=== PATIENT | female | born 1995 | race Caucasian/White ===

== ENCOUNTER 2017-02-20 00:08 | Emergency (ER) | payer OTHER ==
[~2017-02-20] VITALS: Ht 149.9 cm; Wt 95.2 kg
[~2017-02-20 00:08] MED LIST: BIRTH CONTROL PO; COLACE100 MG PO; MOTRIN800 MG PO; NOHOMEMEDS; ZOFRAN4 MG PO
[2017-02-20 00:11] VITALS: BP 113/81
[2017-02-20] MEDS ORDERED: FLEXERIL10 MG PO (01:25)
[2017-02-20] MEDS ORDERED: NAPROSYN500 MG PO (01:25)
== END 2017-02-20 01:45 | disposition home or self-care (01) ==
LOC: EME 00:08
DX: S39.012A Strain of muscle, fascia and tendon of lower back, initial encounter (principal); M62.830 Muscle spasm of back; V49.40XA Driver injured in collision with unspecified motor vehicles in traffic accident, initial encounter
CPT/HCPCS: 99281; 99283

== ENCOUNTER 2017-07-23 00:05 | Emergency (ER) | payer OTHER ==
[~2017-07-23] VITALS: Ht 149.9 cm; Wt 97.4 kg
[~2017-07-23 00:05] MED LIST changes: +FLEXERIL10 MG PO; +NAPROSYN500 MG PO
[2017-07-23 01:59] VITALS: BP 98/63
[2017-07-23] MEDS ORDERED: UNABLE TO OBTAIN (01:59)
== END 2017-07-23 02:01 | disposition home or self-care (01) ==
LOC: EME 00:05
PROC: 2W3CX1Z Immobilization of Right Lower Arm using Splint (ICD-10-PCS; principal; 2017-07-23)
DX: S62.306A Unspecified fracture of fifth metacarpal bone, right hand, initial encounter for closed fracture (principal); W22.09XA Striking against other stationary object, initial encounter; F17.200 Nicotine dependence, unspecified, uncomplicated
CPT/HCPCS: 73130; 99281; 99283

== ENCOUNTER 2017-12-28 22:06 | Emergency (ER) | payer OTHER ==
[~2017-12-28] VITALS: Ht 149.9 cm; Wt 100.9 kg
[~2017-12-28 22:06] MED LIST changes: +UNABLE TO OBTAIN
[2017-12-28 22:41] LABS: HEMATOCRIT 35.1 % (36.0-46.0); MCH 30.5 PG (29.0-34.0); MCHC 34.2 G/DL (30.0-36.0); MCV 89.3 FL (83-99); PLATELET COUNT 230 K/uL (156-360); RBC DIS.WIDTH-CV 12.7 % (11.8-14.6); RBC DIS.WIDTH-SD 41.5 % (39-53); RED BLOOD COUNT 3.93 M/uL (3.80-5.20); WHITE BLOOD COUNT 10.5 K/uL (4.1-10.2)
[2017-12-28 22:52] LABS: ALBUMIN 4.4 g/dL (3.2-4.8); CHLORIDE 106 mEq/L (99-109); POTASSIUM 3.7 mEq/L (3.7-5.4); SODIUM 139 mEq/L (136-147)
[2017-12-28 22:55] LABS: GLUCOSE 84 mg/dL (70-99); TOTAL PROTEIN 7.3 g/dL (6.4-8.3)
[2017-12-28 22:57] LABS: TOTAL BILIRUBIN 0.3 mg/dL (0.0-1.0)
[2017-12-28 22:58] LABS: ALKALINE PHOSPHATASE 49 IU/L (3-129); CREATININE 0.7 mg/dL (0.6-1.3); GFR ESTIMATE (CALCULATED) > 59 mL/min/
[2017-12-28 22:59] LABS: UREA NITROGEN (BUN) 8 mg/dL (9-23)
[2017-12-28 23:00] LABS: AST (GOT) 31 IU/L (2-34)
[2017-12-28 23:01] LABS: ALT (GPT) 36 IU/L (3-49)
[2017-12-28 23:23] LABS: QUANTITATIVE HCG 130190.3 MIU/ML
[2017-12-29 02:55] LABS: APPEARANCE CLOUDY ((CLEAR)); BILIRUBIN NEGATIVE; BLOOD NEGATIVE; COLOR YELLOW ((YELLOW)); GLUCOSE (STRIP) NEGATIVE; KETONES NEGATIVE; LEUKOCYTES TRACE; NITRITE NEGATIVE; PROTEIN (STRIP) NEGATIVE; SPECIFIC GRAVITY 1.025 (1.000-1.030); UROBILINOGEN 0.2 MG/DL (0.2-1.0)
[2017-12-29 02:59] LABS: BACTERIA RARE /HPF; EPITHELIAL CELLS 3+ /HPF; MUCUS TRACE /LPF; UCUL ADDED? NO; WHITE BLOOD CELLS 0-5 /HPF (0-5)
[2017-12-29] MEDS ORDERED: MACROBID100 MG PO (04:00)
[2017-12-29 04:14] VITALS: BP 107/69
== END 2017-12-29 04:14 | disposition home or self-care (01) ==
LOC: EME 22:06
DX: O23.41 Unspecified infection of urinary tract in pregnancy, first trimester (principal); Z3A.09 9 weeks gestation of pregnancy; Z87.891 Personal history of nicotine dependence
CPT/HCPCS: 76705; 80053; 81003; 84702; 85027; 99281; 99284; J7030

== ENCOUNTER 2018-03-04 20:03 | Emergency (ER) | payer OTHER ==
[~2018-03-04] VITALS: Ht 149.9 cm; Wt 96.6 kg
[~2018-03-04 20:03] MED LIST changes: +MACROBID100 MG PO
[2018-03-04 21:25] LABS: HEMATOCRIT 34.4 % (36.0-46.0); HEMOGLOBIN 11.9 G/DL (11.9-15.5); MCH 30.7 PG (29.0-34.0); MCHC 34.6 G/DL (30.0-36.0); MCV 88.9 FL (83-99); PLATELET COUNT 247 K/uL (156-360); RBC DIS.WIDTH-CV 13.3 % (11.8-14.6); RED BLOOD COUNT 3.87 M/uL (3.80-5.20); WHITE BLOOD COUNT 11.8 K/uL (4.1-10.2)
[2018-03-04 21:33] LABS: CHLORIDE 108 mEq/L (99-109); POTASSIUM 3.6 mEq/L (3.7-5.4); SODIUM 140 mEq/L (136-147)
[2018-03-04 21:34] LABS: GLUCOSE 101 mg/dL (70-99)
[2018-03-04 21:38] LABS: CREATININE 0.7 mg/dL (0.6-1.3); GFR ESTIMATE (CALCULATED) > 59 mL/min/
[2018-03-04 21:39] LABS: UREA NITROGEN (BUN) 8 mg/dL (9-23)
[2018-03-04 22:07] LABS: QUANTITATIVE HCG 35291.1 MIU/ML
[2018-03-04 22:49] LABS: APPEARANCE SL.HAZY ((CLEAR)); BILIRUBIN NEGATIVE; BLOOD NEGATIVE; COLOR YELLOW ((YELLOW)); GLUCOSE (STRIP) NEGATIVE; KETONES 5; LEUKOCYTES SMALL; NITRITE NEGATIVE; PROTEIN (STRIP) 30; SPECIFIC GRAVITY 1.027 (1.000-1.030); UROBILINOGEN 0.2 MG/DL (0.2-1.0)
[2018-03-04 22:53] LABS: BACTERIA 1+ /HPF; CALCIUM OXALATE CRYSTALS 1+ /HPF; EPITHELIAL CELLS 2+ /HPF; MUCUS TRACE /LPF; WHITE BLOOD CELLS 0-5 /HPF (0-5)
[2018-03-04] MEDS ORDERED: KEFLEX500 MG PO (23:10)
[2018-03-04 23:47] VITALS: BP 112/64
== END 2018-03-04 23:48 | disposition home or self-care (01) ==
LOC: EME 20:03 → RME 20:03
PROVIDERS: Physician Assistant
DX: O23.42 Unspecified infection of urinary tract in pregnancy, second trimester (principal); Z3A.18 18 weeks gestation of pregnancy; O99.512 Diseases of the respiratory system complicating pregnancy, second trimester; J45.909 Unspecified asthma, uncomplicated; Z87.891 Personal history of nicotine dependence
CPT/HCPCS: 80048; 81003; 84702; 85027; 87086; 99281; 99284

== ENCOUNTER 2018-06-02 16:01 | Outpatient (CLI) | payer OTHER ==
[~2018-06-02] VITALS: Ht 149.9 cm; Wt 99.8 kg
[~2018-06-02 16:01] MED LIST changes: +KEFLEX500 MG PO
[2018-06-02 16:18] VITALS: BP 114/62
[2018-06-02 16:52] VITALS: BP 119/56
[2018-06-02 17:26] LABS: APPEARANCE CLEAR ((CLEAR)); BILIRUBIN NEGATIVE; BLOOD NEGATIVE; COLOR STRAW ((YELLOW)); GLUCOSE (STRIP) NEGATIVE; KETONES NEGATIVE; LEUKOCYTES TRACE; NITRITE NEGATIVE; PROTEIN (STRIP) NEGATIVE; SPECIFIC GRAVITY 1.006 (1.000-1.030); UROBILINOGEN 0.2 MG/DL (0.2-1.0)
[2018-06-02 17:42] LABS: BACTERIA RARE /HPF; EPITHELIAL CELLS 1+ /HPF; MUCUS NONE SEEN /LPF; RED BLOOD CELLS 0-5 /HPF (0-5); UCUL ADDED? NO; WHITE BLOOD CELLS 0-5 /HPF (0-5)
[2018-06-02 17:44] LABS: ALBUMIN 3.6 G/DL (3.2-4.8); CHLORIDE 106 MEQ/L (99-109); POTASSIUM 3.6 MEQ/L (3.7-5.4); SODIUM 138 MEQ/L (136-147); TOTAL BILIRUBIN 0.2 MG/DL (0.0-1.0)
[2018-06-02 17:50] LABS: ALKALINE PHOSPHATASE 65 IU/L (3-129); ALT (GPT) 11 IU/L (3-49); AST (GOT) 14 IU/L (2-34); CREATININE 0.7 MG/DL (0.6-1.3); GFR ESTIMATE (CALCULATED) > 59 mL/min/; GLUCOSE 90 mg/dL (70-99); TOTAL PROTEIN 6.4 G/DL (6.4-8.3); UREA NITROGEN (BUN) 6 mg/dL (9-23)
[2018-06-02 18:06] LABS: BENZODIAZEPINES, URINE SCREEN Negative (200 ng/mL)
== END 2018-06-02 18:39 | disposition home or self-care (01) ==
LOC: LDRP-OP 16:01 → 2WEST 16:06
PROVIDERS: Advanced Practice Midwife
DX: O26.893 Other specified pregnancy related conditions, third trimester (principal); R10.32 Left lower quadrant pain; M54.9 Dorsalgia, unspecified; Z87.891 Personal history of nicotine dependence; Z3A.30 30 weeks gestation of pregnancy
CPT/HCPCS: 59025; 80053; 80306 90; 81003; 82570; 84156; 87086; G0378